=== PATIENT | male | born 1950 | race Caucasian/White ===

== ENCOUNTER 2016-10-12 11:23 | Emergency (ER) | payer MEDICARE, BC ==
[2016-10-12] MEDS ORDERED: FENTANYL 100 MCG/2 ML VIAL ONE (11:58)
[2016-10-12 12:18] LABS: INR 1.2
[2016-10-12 12:26] LABS: BAND% (Manual) 1 % (0.0-1.0); BASOPHIL % (Manual) 0 % (0.0-2.0); EOSINOPHIL % (Manual) 1 % (0.0-6.0); HEMATOCRIT 49.9 % (42.0-54.0); HEMOGLOBIN 16.6 g/dL (14.0-18.0); LYMPHOCYTE % (Manual) 21 % (20.0-40.0); MEAN CORPUS. HGB CONCENTRATION 33.3 g/dL (32.0-36.0); MEAN CORPUSCULAR HEMOGLOBIN 29.3 pg (29.0-35.0); MEAN PLATELET VOLUME 9.7 fL (7.4-10.4); MONOCYTE % (Manual) 9 % (2.0-10.0); NEUTROPHIL % (Manual) 68 % (54.0-75.0); PLATELET COUNT 188 X 10^3uL (130-440); PLATELET ESTIMATE ADEQUATE; RED BLOOD COUNT 5.67 X 10^6uL (4.20-6.10); RED CELL DISTRIBUTION WIDTH 14.5 % (11.5-14.5); WHITE BLOOD COUNT 15.2 X 10^3uL (3.9-10.7)
[2016-10-12 12:27] LABS: TROPONIN - I-STAT < 0.01 ng/mL (0.00-0.034)
[2016-10-12 12:31] LABS: BLOOD UREA NITROGEN 15 mg/dL (9-20); CALCIUM 9.7 mg/dL (8.4-10.2); CHLORIDE 103 mmol/L (98-107); EST GLOMERULAR FILTRATION RATE 59 mL/min; MAGNESIUM 1.6 mg/dL (1.6-2.3); POTASSIUM 4.9 mmol/L (3.5-5.1); SODIUM 135 mmol/L (137-145)
[2016-10-12 12:32] LABS: GLUCOSE 249 mg/dL (70-100)
--- NOTE | 2016-10-12 12:37 | RADIOLOGY REPORT ---
History: Shortness of breath and chest pain Comparison: None. Technique: CXR 2V FINDING: No evidence of acute cardiopulmonary disease. The cardiomediastinal silhouette is normal. The lungs are clear. No evidence of pleural effusion or pneumothorax. IMPRESSION: No evidence of acute cardiopulmonary disease. Final Electronic Signature: This report was electronically signed by Gen Griselda MD on 10/12/2016 12 :35 PM. wolf /
[2016-10-12 14:18] LABS: LIPASE 326 U/L (23-300)
--- NOTE | 2016-10-12 14:18 | CT REPORT ---
HISTORY: Elevated d-dimer and shortness of breath. COMPARISON: Chest x-ray October 12, 2016. TECHNIQUE: This examination was performed using automated exposure control, adjustment of mA or kV according to patient size, and/or use of iterative reconstruction technique. Axial CT imaging from the thoracic i nlet through the upper abdomen following administration of IV contrast during peak opacification of t he pulmonary arteries, multiplanar reformatted and 3-D images are evaluated. 100cc Isovue 370 contrast. FINDINGS: There is no evidence of a pulmonary embolus. The lungs are clear without focal infiltrates or evidence pulmonary edema. No effusions or pneumothor ax. There is mild four-chamber cardiac enlargement and mild atherosclerotic disease involving the thoraci c aorta and coronary arteries. There are some scattered small mediastinal lymph nodes. No pathologic lymphadenopathy. No pericardial effusion. No hiatal hernia. Visualized upper abdominal organs are normal. IMPRESSION: 1. No PE. Clear lungs. Final Electronic Signature: This report was electronically signed by Chan Parmar MD on 10/12/2016 2:1 6 PM. sross /
--- NOTE | 2016-10-12 15:03 | ER NURSING DOCUMENTATION ---
Nurse's Notes [facility] Name:Padilla Wolf II Age:66 yrs Sex:Male :1950 Arrival Date:10/12/2016 Time:11:23 BedTrauma-C Private MD: Diagnosis:Chest Pain Presentation: 10/12 11:26 Acuity: JAS 2 tg 11:52 Presenting complaint: Patient states: Midsternal chest pain since 0530 today radiating sj to mid-back. Denies SOB or diaphoresis. Worse laying flat. Relieved slightly by Tylenol. Transition of care: patient was received from another setting of care (ambulatory primary care physician practice). Asprin Given Given in ED 324 mg po. Risk considerations: history of pulmonary embolus, movement or migration of pain. Notified ED Physician of patient's arrival and CC Juan Francisco Diez notified. 11:52 Method Of Arrival: Other sj 15:01 AIR CAT ACTIVATION no other unnecessary. sj Triage Assessment: 11:58 General: Appears uncomfortable, Behavior is cooperative, pleasant. Pain: Complains of sj pain in mid-sternal area Pain radiates to thoracic area Pain currently is 3 out of 10 on a pain scale. At worst was 8 out of 10 on a pain scale. Neuro: Level of Consciousness is awake, alert, Oriented to person, place, time, event. Cardiovascular: Capillary refill < 3 seconds Chest pain is aggravated by laying flat. Respiratory: Airway is patent Respiratory effort is even, unlabored, Respiratory pattern is regular, symmetrical. Historical: - Allergies: seasonal; - Home Meds: 1. Pradaxa oral 2. Metformin Oral 3. Glyburide Oral 4. Metoprolol Tartrate Oral 5. insulin humulin 6. Simvastatin Oral 7. Lisinopril Oral - PMHx: PE 10 years ago; DVT left leg; DIABETES - IDDM; spinal stenosis; atrial fibrillation; sepsis from ureteral blockage; - PSHx: bilateral knee replacements; nasal polyps; URETERAL STENTS; - Tetanus: < 10 years. - Ebola Screening: : Patient negative for fever greater than or equal to 101.5 degrees Fahrenheit, and additional compatible Ebola Virus Disease symptoms. Patient denies exposure to infectious person. Patient denies travel to an Ebola-affected area in the 21 days before illness onset. No symptoms or risks identified at this time. . - Immunization history: shingles Pneumococcal vaccine is up to date, Flu Vaccine < 1 year. - Social history: Smoking status: Patient states was never smoker of tobacco. Patient uses alcohol weekly. marijuana. Screenin:03 Infectious Disease Risk None. Abuse screen: Denies threats or abuse. Denies injuries sj from another. Nutritional screening: No deficits noted. Assessment: 12:11 Pain: Pain began 4 hours ago. Neuro: Denies paresthesias numbness. Cardiovascular: Heart tones S1 S2 Pulses are 2+ in right radial artery, right dorsalis pedis artery, left radial artery and left dorsalis pedis artery. Respiratory: Breath sounds are clear bilaterally. GI: Abdomen is obese, Bowel sounds hypoactive in throughout. Vital Signs: 11:30 BP 106 / 72; Pulse 96; Resp 15; Pulse Ox 90% on R/A; Pain 3/10; sj 11:49 BP 119 / 83; Pulse 98; Resp 20; Pulse Ox 98% on 2 lpm NC; sj 12:10 Pain 1/10; sj 12:30 BP 109 / 81; Pulse 92; Resp 25; Temp 99.0(O); Pulse Ox 95% on 2 lpm NC; Weight 99.79 sj kg; Height 5 ft. 9 in. (175.26 cm); Pain 1/10; 13:00 BP 117 / 81; Pulse 87; Resp 30; Pulse Ox 94% on 2 lpm NC; sj 13:26 Pulse 91 MON; Resp 31; Pulse Ox 95% ; sj 13:30 BP 114 / 80 (auto/); sj 14:01 Pulse 97 MON; Resp 30; Pulse Ox 97% ; sj 14:30 BP 106 / 77; Pulse 92; Resp 23; Pulse Ox 98% on 2 lpm NC; sj 12:30 Body Mass Index 32.49 (99.79 kg, 175.26 cm) ED Course: 11:25 Patient arrived in ED. dp 11:25 Mo Chicas MD is Attending Physician. jm 11:26 Triage completed. tg 11:52 Saumya Lucas is Primary Nurse. sj 12:02 EKG done per protocol. Performed by ED Staff. Labs ordered per protocol. Drawn by lab. sj 12:02 Valuables Given to family. Patient has correct armband on for positive identification. sj Placed in gown. Bed in low position. Call light in reach. Side rails up X 1. surveillance system monitor on. Pulse ox on. NIBP on. 12:03 Inserted peripheral IV: 20 gauge in right forearm and blood collected. Oxygen Oxygen sj administration via nasal cannula @ 2L/min. 12:31 EKG attached [facility] [place] 14:[address] cash 14:[address] cash 14:37 Brnadan Mendez MD is Referral Physician. Administered Medications: 11:55 Drug: Aspirin 81 mg, 4 tabs, total of 324 mg - Aspirin 81 mg; Route: PO; 15:01 Follow up: Response: No adverse reaction 12:02 Drug: fentaNYL (PF) 75 mcg; Route: IVP; Infused Over: 3 mins; Site: right forearm; 15:01 Follow up: Response: Pain is decreased 15:01 Not Given (Physician Discretion; low BP): Nitroglycerin 0.4 mg Sublingual every 5 sj minutes; every five minutes if needed x3 Point of Care Testing: Blood Glucose: 11:49 Blood Glucose: 259 mg/dL; Ranges: Outcome: 14:37 Discharge ordered by . katy 14:58 Discharged to home ambulatory, with family. 14:58 Condition: improved 14:58 Instructed on discharge instructions, follow up and referral plans. Demonstrated understanding of instructions. 14:59 IV D/Sadi 15:02 Patient left the ED. 10/13 12:14 Discharge F/U Call: Spoke with: patient. Are you having any pain? no. Have you filled sj your prescriptions? n/a Did your discharge instructions answer all of your questions? yes Have you made a f/u appointment? yes Signatures: Ashkan Whitney RN RN tg Campbell, Sandy, RN RN sc1 Mo Chicas MD MD jm Abbott, Madeline Lucas, Nat Webb
--- NOTE | 2016-10-12 15:03 | ER PHYSICIAN DOCUMENTATION ---
Physician Documentation [facility] Name:Padilla Wolf II Age:66 yrs Sex:Male :1950 Arrival Date:10/12/2016 Time:11:23 BedTrauma-C Private MD: Mo Gandara Disposition: 10/12/16 14:37 Discharged to Home/Self Care. Impression: Chest Pain. - Condition is Good. - Discharge Instructions: CHEST PAIN, Uncertain Cause. - Medical Reconciliation form form. - Follow up: Brandan Mendez MD; When: 2 - 3 days; Reason: Continuance of care. - Problem is new. - Symptoms have improved. HPI: 10/12 12:00 This 66 yrs old Male presents to ER via Other with complaints of Chest Pain, jm Shortness Of Breath. 12:00 The patient or guardian reports chest pain that is located primarily in the anterior jm chest wall. Onset: today, 5 hour(s) ago. The pain radiates to back. There has been no movement of pain. Associated signs and symptoms: Pertinent positives: shortness of breath. The chest pain is described as sharp. Duration: The patient or guardian reports a single episode, that is still ongoing. Modifying factors: the symptoms are aggravated by deep breath. Severity of pain: in the emergency department the pain is a 6 / 10. The patient has not experienced similar symptoms in the past. The patient has not recently seen a physician. Historical: - Allergies: seasonal; - Home Meds: 1. Pradaxa oral 2. Metformin Oral 3. Glyburide Oral 4. Metoprolol Tartrate Oral 5. insulin humulin 6. Simvastatin Oral 7. Lisinopril Oral - PMHx: PE 10 years ago; DVT left leg; DIABETES - IDDM; spinal stenosis; atrial fibrillation; sepsis from ureteral blockage; - PSHx: bilateral knee replacements; nasal polyps; URETERAL STENTS; - Tetanus: < 10 years. - Ebola Screening: : Patient negative for fever greater than or equal to 101.5 degrees Fahrenheit, and additional compatible Ebola Virus Disease symptoms. Patient denies exposure to infectious person. Patient denies travel to an Ebola-affected area in the 21 days before illness onset. No symptoms or risks identified at this time. . - Immunization history: shingles Pneumococcal vaccine is up to date, Flu Vaccine < 1 year. - Social history: Smoking status: Patient states was never smoker of tobacco. Patient uses alcohol weekly. marijuana. ROS: 12:00 Constitutional: Negative for chills, fatigue, fever, malaise. jm 12:00 ENT: Negative for rhinorrhea, sinus congestion, sinus pain, sore throat. 12:00 Cardiovascular: Positive for chest pain, Negative for edema. 12:00 Respiratory: Positive for shortness of breath, Negative for cough. 12:00 Abdomen/GI: Negative for abdominal pain, nausea, vomiting, diarrhea. 12:00 Neuro: Negative for altered mental status, weakness. 12:00 Psych: Negative for anxiety, depression. 12:00 All other systems are negative. Exam: 12:00 Constitutional: The patient appears alert, awake. jm 12:00 Eyes: Periorbital structures: appear normal, Conjunctiva: normal. 12:00 Neck: Thyroid: appears normal, Trachea: is midline with no obvious abnormalities. 12:00 Chest/axilla: Inspection: normal, Palpation: is normal. 12:00 Cardiovascular: Rate: normal, Rhythm: regular, Pulses: no pulse deficits are appreciated. 12:00 Respiratory: Respirations: normal, Breath sounds: are normal. 12:00 Abdomen/GI: Palpation: abdomen is soft and non-tender, Rectal exam: is unremarkable. 12:00 Musculoskeletal/extremity: DVT Exam: No signs of deep vein thrombosis. Calves: are non-tender, have equal circumference. 12:00 Skin: Appearance: Color: pink, no rash present. 12:00 Neuro: Mentation: is normal, Memory: is normal. 12:00 Psych: Behavior/mood is pleasant, cooperative, Affect is calm. Vital Signs: 11:30 BP 106 / 72; Pulse 96; Resp 15; Pulse Ox 90% on R/A; Pain 3/10; sj 11:49 BP 119 / 83; Pulse 98; Resp 20; Pulse Ox 98% on 2 lpm NC; sj 12:10 Pain 1/10; sj 12:30 BP 109 / 81; Pulse 92; Resp 25; Temp 99.0(O); Pulse Ox 95% on 2 lpm NC; Weight 99.79 sj kg; Height 5 ft. 9 in. (175.26 cm); Pain 1/10; 13:00 BP 117 / 81; Pulse 87; Resp 30; Pulse Ox 94% on 2 lpm NC; 13:26 Pulse 91 MON; Resp 31; Pulse Ox 95% ; sj 13:30 BP 114 / 80 (auto/); sj 14:01 Pulse 97 MON; Resp 30; Pulse Ox 97% ; sj 14:30 BP 106 / 77; Pulse 92; Resp 23; Pulse Ox 98% on 2 lpm NC; sj 12:30 Body Mass Index 32.49 (99.79 kg, 175.26 cm) MDM: 11:25 Patient medically screened. 12:31 EKG attached sc1 15:48 Differential diagnosis: acute myocardial infarction. 16:17 Patient took aspirin. Data reviewed: vital signs, nurses notes, old medical records, lab test result(s), EKG, radiologic studies, and as a result, I will discharge patient. Test interpretation: by ED physician or midlevel provider: plain radiologic studies, ECG. Counseling: I had a detailed discussion with the patient and/or guardian regarding: the historical points, exam findings, and any diagnostic results supporting the discharge/admit diagnosis, lab results, radiology results, the need for outpatient follow up, with the patient's primary care provider. ECG:. Medication response: The patient's symptoms have improved, ED course: Pt w 5 hours of constant CP. Trop negative. D-Dimer bumped so CT ordered which was negative Pain radiates to back, but lipase also normal w no pain on palp. VSS. Pt will be DC'd home but told to call / [facility] Saturday morning. . 10/12 12:19 Order name: PROTIME/INR [facility] 10/12 12:27 Order name: CBC W/ MANUAL DIFFERENTIAL [facility] 10/12 12:27 Order name: TROPONIN - I-STAT [facility] 10/12 12:32 Order name: BASIC METABOLIC PANEL [facility] 10/12 12:32 Order name: MAGNESIUM [facility] 10/12 13:27 Order name: DDIMER [facility] 10/12 14:18 Order name: LIPASE [facility] 10/12 17:34 Order name: BNP,NT-PRO [facility] 10/12 12:38 Order name: CXR 2V [id number]; Complete Time: 12:39 [facility] 10/12 14:20 Order name: CAT SCAN; CHEST ANGIO [id number] [facility] 10/12 11:34 Order name: 12-lead EKG; Complete Time: 12:10 10/12 11:34 Order name: Iv Saline Lock; Complete Time: 12: 10/12 11:34 Order name: Place Patient On Monitor; Complete Time: 10/12 11:34 Order name: Pulse Ox Continuous; Complete Time: 12: EC:17 Rhythm is irregular, A fib. QRS interval is normal. QT interval is normal. No Q waves. T waves are Normal. No ST changes noted. Dispensed Medications: 11:55 Drug: Aspirin 81 mg, 4 tabs, total of 324 mg - Aspirin 81 mg; Route: PO; sj 15:01 Follow up: Response: No adverse reaction 12:02 Drug: fentaNYL (PF) 75 mcg; Route: IVP; Infused Over: 3 mins; Site: right forearm; sj 15:01 Follow up: Response: Pain is decreased sj 15:01 Not Given (Physician Discretion; low BP): Nitroglycerin 0.4 mg Sublingual every 5 sj minutes; every five minutes if needed x3 Point of Care Testing: Blood Glucose: 11:49 Blood Glucose: 259 mg/dL; sj Ranges: Critical Glucose Levels:Adult <50 mg/dl or >400 mg/dl <40 mg/dl or >180 mg/dl Signatures: Lulu Ireland RN RN sc1 Mo Chicas MD MD Saumya Lucas
== END 2016-10-12 15:03 | disposition home or self-care (01) ==
LOC: ER 11:23
DX: R07.81 Pleurodynia (principal); R06.02 Shortness of breath; I48.91 Unspecified atrial fibrillation; E11.9 Type 2 diabetes mellitus without complications; Z86.711 Personal history of pulmonary embolism; Z86.718 Personal history of other venous thrombosis and embolism; Z79.01 Long term (current) use of anticoagulants; Z79.899 Other long term (current) drug therapy
CPT/HCPCS: 36415; 71020; 71275; 80048; 83690; 83735; 83880; 84484; 85007; 85027; 85379; 85610; 93005; 93010; 96374; 99285; J3010